=== PATIENT | male | born 2005 | race Caucasian/White ===

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

== ENCOUNTER 2024-10-17 14:00 | Emergency (ER) | payer BC, OTHER ==
--- NOTE | 2024-10-17 16:01 | ED ---
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 Patient states he did not eat very much this morning. Patient states he was in patient's room and felt faint. He does endorse that he hit his head on the ground and had loss of consciousness. Patient has had a few episodes of vomiting since this morning. Patient denies any prior history of syncopal episodes, cardiac history. Denies fevers, abdominal pain, chest pain, shortness of breath. (Demi Blum) - Related Data Previous Rx's Medication Instructions Recorded Albuterol Inhaler [Ventolin Hfa 1 - 2 puff INHALATION RT-Q6H PRN 09/03/18 Inhaler] #1 inhaler Ibuprofen 600 mg PO TID #20 tablet 09/03/18 methylPREDNISolone Dose Pack 4 mg PO DIRECTED #21 package 09/03/18 [Medrol Dose Pack] Allergies Allergy/AdvReac Type Severity Reaction Status Date / Time No Known Allergies Allergy Verified 10/17/24 14:32 Review of Systems ROS Other: All systems not noted in ROS Statement are negative. <Rashid Mina - Last Filed: 10/17/24 16:01> ROS Other: All systems not noted in ROS Statement are negative. Constitutional: Denies: fever, chills Eyes: Denies: eye pain Respiratory: Denies: cough, dyspnea Cardiovascular: Denies: chest pain, palpitations Gastrointestinal: Reports: vomiting. Denies: diarrhea, constipation Musculoskeletal: Denies: back pain Skin: Denies: rash, lesions <Demi Blum - Last Filed: 10/17/24 17:29> ROS Statement: Those systems with pertinent positive or pertinent negative responses have been documented in the HPI. Past Medical History Additional Past Medical History / Comment(s): HEADACHE, constipation History of Any Multi-Drug Resistant Organisms: None Reported Additional Past Surgical History / Comment(s): EYE SURGERY Past Psychological History: No Psychological Hx Reported Smoking Status: Never smoker Past Alcohol Use History: None Reported Past Drug Use History: None Reported <Rashid Mina - Last Filed: 10/17/24 16:01> General Exam Limitations: no limitations <Rashid Mina - Last Filed: 10/17/24 16:01> Course Vital Signs 10/17/24 14:23 Temperature 98.2 F Pulse Rate 103 H Respiratory 22 Rate Blood Pressure 93/62 O2 Sat by Pulse 95 Oximetry Medical Decision Making <Rashid Mina - Last Filed: 10/17/24 16:01> - Lab Data Result diagrams: 10/17/24 16:08 10/17/24 16:08 <Demi Blum - Last Filed: 10/17/24 17:29> - Medical Decision Making I personally saw the patient and performed the critical portion of the service. I discussed the patient care with the Dr. Blum. I directed management, care planning and final disposition of the patient. This includes, but not limited to, review of all lab work, radiological studies, EKG's, consultations, vital signs, and nursing notes. EKG interpreted by me (3pts min.) @ [as above] X-Rays interpreted by me (1 pt min.) @ [none] CT interpreted by me ( 1pt min.) @ [none] U/S interpreted by me (1 pt min.) @ [none] Critical care time of [0] minutes excluding separately billable procedures was spent in conjunction with critical care activities provided by the Resident and Attending simultaneously. I was present during [no procedures] for all critical portions of the procedure and as immediately available to furnish service during the entire procedure. (Rashid Mina) Was pt. sent in by a medical professional or institution (, PA, ELECTRICIAN MAINTENANCE, urgent care, hospital, or assisted...) When possible be specific @ -No Did you speak to anyone other than the patient for history (EMS, parent, family, police, friend...)? What history was obtained from this source @ -No Did you review nursing and triage notes (agree or disagree)? Why? @ -I reviewed and agree with nursing and triage notes Were old charts reviewed (outside hosp., previous admission, EMS record, old EKG, old radiological studies, urgent care reports/EKG's, assisted records)? Report findings @ -No old charts were reviewed Differential Diagnosis? @ -Differential Syncope: Valvular disease, hypertrophic cardiomyopathy, pulmonary embolism, tamponade, tachycardia, bradycardia, GA, hypovolemia, hemorrhage, dissection, anemia, intracranial hemorrhage, seizure, hypoglycemia, carbon monoxide poisoning, this is not meant to be an all-inclusive list. EKG interpreted by me (3pts min.). @ -EKG shows sinus tachycardia, rate of 107, QT interval of 390 ms, no ST wave changes. X-rays interpreted by me (1pt min.). @ -None done CT interpreted by me (1pt min.). @ - head CT does not appear to show evidence of bleeding ischemia or hemorrhage. U/S interpreted by me (1pt. min.). @ -None done What testing was considered but not performed or refused? (CT, X-rays, U/S, labs)? Why? @ -None What meds were considered but not given or refused? Why? @ -None Did you discuss the management of the patient with other professionals (sofi christopher i.e. , PA, ELECTRICIAN MAINTENANCE, lab, RT, psych nurse, social service agency director, formal wear rental clerk, teacher, sheriffs officer, case management rn)? Give summary @ -Case was discussed with ED physician Dr. Mina. Was smoking cessation discussed for >3mins.? @ -No Was critical care preformed (if so, how long)? @ -No Were there social determinants of health that impacted care today? How? (Homelessness, low income, unemployed, alcoholism, drug addiction, transportation, low edu. Level, literacy, decrease access to med. care, alf, r ehab)? @ -No Was there de-escalation of care discussed even if they declined (Discuss DNR or withdrawal of care, Hospice)? DNR status @ -No What co-morbidities impacted this encounter? (DM, HTN, Smoking, COPD, CAD, Cancer, CVA, ARF, Chemo, Hep., AIDS, mental health diagnosis, sleep apnea, morbid obesity)? @ -None Was patient admitted / discharged? Hospital course, mention meds given and route, prescriptions, significant lab abnormalities, going to OR and other pertinent info. @ -CT scan was negative for intracranial bleeding. Patient will be discharged home with self-care. Undiagnosed new problem with uncertain prognosis? @ -No Drug Therapy requiring intensive monitoring for toxicity (Heparin, Nitro, Insulin, Cardizem)? @ -No Were any procedures done? @ -No Diagnosis/symptom? @ -Syncopal episode Acute, or Chronic, or Acute on Chronic? @ -Acute Uncomplicated (without systemic symptoms) or Complicated (systemic symptoms)? @ -Uncomplicated Side effects of treatment? @ -No Exacerbation, Progression, or Severe Exacerbation? @ -No Poses a threat to life or bodily function? How? (Chest pain, USA, GA, pneumonia, PE, COPD, DKA, ARF, appy, cholecystitis, CVA, Diverticulitis, Homicidal, Suic idal, threat to staff... and all critical care pts) @ -No (Demi Blum) - Lab Data Lab Results 10/17/24 10/17/24 Range/Units 16:08 16:08 WBC 11.67 H (4.50-10.00) 10*3/uL RBC 5.45 (4.40-5.60) 10*6/uL Hgb 16.2 (13.0-17.0) g/dL Hct 47.4 (39.6-50.0) % MCV 87.0 (80.0-97.0) fL MCH 29.7 (27.0-32.0) pg MCHC 34.2 (32.0-37.0) g/dL Plt Count 274 (140-440) 10*3/uL MPV 10.7 (9.5-12.2) fL Immature Gran % (Auto) 0.2 % Neutrophils % 81.8 % Lymphocytes % 9.0 % Monocytes % 8.6 % Eosinophils % 0.1 % Basophils % 0.3 % Immature Gran # 0.02 (0.00-0.04) 10*3/uL Neutrophils # 9.55 H (1.80-7.70) 10*3/uL Lymphocytes # 1.05 (0.90-5.00) 10*3/uL Monocytes # 1.00 (0.20-1.00) 10*3/uL Eosinophils # 0.01 L (0.04-0.35) 10*3/uL Basophils # 0.04 (0.00-0.10) 10*3/uL Sodium 140 (137-145) mmol/L Potassium 4.2 (3.5-5.1) mmol/L Chloride 101 (98-107) mmol/L Carbon Dioxide 27 (22-30) mmol/L Anion Gap 12 mmol/L BUN 21 H (9-20) mg/dL Creatinine 0.89 (0.66-1.25) mg/dL Est GFR (CKD-EPI)AfAm >90 (>60 ml/min/1.73 sqM) Est GFR (CKD-EPI)NonAf >90 (>60 ml/min/1.73 sqM) Glucose 111 H (74-99) mg/dL Calcium 10.0 (8.4-10.2) mg/dL Magnesium 1.7 (1.6-2.3) mg/dL Total Bilirubin 1.6 H (0.2-1.3) mg/dL AST 29 (17-59) U/L ALT 55 H (4-49) U/L Alkaline Phosphatase 54 (38-126) U/L Total Protein 7.7 (6.3-8.2) g/dL Albumin 4.7 (3.5-5.0) g/dL Disposition <Rashid Mina - Last Filed: 10/17/24 16:01> Time of Disposition: 16:30 <Demi Blum - Last Filed: 10/17/24 17:29> Clinical Impression: Fainting spell Disposition: HOME SELF-CARE Additional Instructions: Patient will be discharged home with self-care. Encouraged patient to eat and hydrate well prior to work. Follow-up with PCP in 1 to 2 days. Return precautions to ED discussed including worsening or persistence of symptoms, i ntractable nausea or vomiting, severe headache. Referrals: Andressa Keene DO [Primary Care Provider] - 1-2 days
[2024-10-17 16:17] LABS: Basophils # (A) 0.04 10*3/uL (0.00-0.10); Basophils % (A) 0.3 %; Eosinophils # (A) 0.01 10*3/uL (0.04-0.35); Eosinophils % (A) 0.1 %; HCT 47.4 % (39.6-50.0); HGB 16.2 g/dL (13.0-17.0); Lymphocytes # (A) 1.05 10*3/uL (0.90-5.00); MCH 29.7 pg (27.0-32.0); MCHC 34.2 g/dL (32.0-37.0); Mean Platelet Volume 10.7 fL (9.5-12.2); Monocytes % (A) 8.6 %; Neutrophils # (A) 9.55 10*3/uL (1.80-7.70); Neutrophils % (A) 81.8 %; Platelet Count 274 10*3/uL (140-440); RBC 5.45 10*6/uL (4.40-5.60); RDW 12.3 % (11.5-14.5); WBC 11.67 10*3/uL (4.50-10.00)
--- NOTE | 2024-10-17 16:33 | CT ---
EXAMINATION TYPE: CT brain wo con DATE OF EXAM: 10/17/2024 COMPARISON: 06/16/2010 CLINICAL INDICATION: Male, 19 years old with history of syncope; PH[facility], Syncope. CT DLP: 1171.4 mGycm Automated exposure control for dose reduction was used. TECHNIQUE: Multiple axial images are obtained from skull base to vertex without use of IV contrast ma terial. FINDINGS: The ventricles, basal cisterns and sulci over the convexities within normal limits and there is no ma ss effect or shift of midline structures. No abnormal density is seen throughout the brain parenchyma and there is no acute intra or extra-axia l hemorrhage. The posterior fossa and brainstem, fourth ventricle and cerebellar pontine angles appear normal. The intraorbital contents appear normal and symmetric. There is marked mucosal thickening and mucous retention cysts or polyps in the left maxillary sinus.. IMPRESSION: Marked chronic inflammatory changes in the left maxillary sinus. No other significant abnormality see n intracranially.. [facility], Workstation: [id number] 10/17/2024 4:31 PM
[2024-10-17 16:39] LABS: ALT 55 U/L (4-49); AST 29 U/L (17-59); African American GFR (CKD) >90 (>60 ml/min/1.73 sqM); Albumin 4.7 g/dL (3.5-5.0); Alkaline Phosphatase 54 U/L (38-126); Anion Gap 12 mmol/L; Blood Urea Nitrogen 21 mg/dL (9-20); Carbon Dioxide 27 mmol/L (22-30); Chloride 101 mmol/L (98-107); Glucose 111 mg/dL (74-99); Magnesium 1.7 mg/dL (1.6-2.3); Non-African American GFR(CKD) >90 (>60 ml/min/1.73 sqM); Potassium 4.2 mmol/L (3.5-5.1); Sodium 140 mmol/L (137-145); Total Bilirubin 1.6 mg/dL (0.2-1.3); Total Protein 7.7 g/dL (6.3-8.2)
[2024-10-17] MEDS: SODIUM CHLORIDE 0.9% 1,000 ML IV STA (16:46)
[2024-10-17 17:47] VITALS: BP 117/71; PULSE 93; RESP 18; TEMP 98.3
== END 2024-10-17 17:47 | disposition home or self-care (01) ==
LOC: EC 14:00
DX: R55 Syncope and collapse (principal)
CPT/HCPCS: 36415; 70450; 80053; 83735; 85025; 93005; 96360; 99284